=== PATIENT | female | born 1965 | race Caucasian/White ===

== ENCOUNTER 2019-12-06 17:30 | Emergency (ER) | payer MEDICARE, MEDICAID, SELFPAY ==
[2019-12-06 17:40] VITALS: BP 168/91; PULSE 67; RESP 16; TEMP 36.4; O2SAT 99; BMI 34.7
[2019-12-06 18:01] LABS: Blood Urine Neg (Negative); Glucose Urine UA Norm (Normal); Ketones Urine Negative (Negative); Nitrate Urine Negative (Negative); Protein Urine Neg (Negative); Urine Appearance Clear (CLEAR); Urine Color Yellow (Yellow); pH Urine 7 (5-7)
[2019-12-06 18:02] LABS: Bilirubin Urine Neg (NEGATIVE); Leukocyte Esterase Urine Negative (Negative); Urobilinogen Urine Norm (Negative)
[2019-12-06 18:15] VITALS: BP 135/82; PULSE 69; RESP 12; TEMP 36.7; O2SAT 98
--- NOTE | 2019-12-06 18:36 | W.ED.FEMALGU ---
HPI - Female Genitourinary General: Chief complaint: Urogenital-Female Stated complaint: Hurts to urinate Time Seen by Provider: 12/06/19 18:14 Source: patient Mode of arrival: ambulatory Limitations: no limitations History of Present Illness: HPI Narrative: Patient is a 54-year-old female who presents to ED today with complaints of dysuria; patient states she has had this for the past week or so; she is also complaining of some intermittent lower abdominal/pelvic pain that has been present intermittently for approximately 2 months now; she was seen by her PCP Dr. Ross who ordered a transvaginal ultrasound as patient was also having some abnormal uterine bleeding; patient states she also had a pelvic exam performed and STD testing and states those came back negative; she tells me she has not been sexually active in over a year; she states abdominal/pelvic pain seems to come on every few days and will normally subside on its own; she does not complain of any changes in her urinary or bowel habits; no vomiting, no fever/chills; she denies vaginal discharge/odor. MD elicited complaint: dysuria and vaginal bleeding Consistency: intermittent Vaginal discharge: none Urinary symptoms: Dysuria Exacerbating factors: none Associated symptoms: Reports abdominal pain; Deny headache(s), nausea or syncope Date of Last Menstrual Period: 12/02/18 Review of Systems Const: Denies: fever, chills, body aches, fatigue or malaise Eyes: Denies: change in vision or blurry vision ENMT: Denies: throat pain, enlarged tonsils or painful swallowing Card: Denies: chest pain, palpitations, irregular heart rhythm, lightheadedness, syncope or shortness of breath on exertion Resp: Denies: shortness of breath, productive cough or pain on inspiration GI: Reports: abdominal pain; Denies: nausea, vomiting, heartburn/indigestion, diarrhea, fecal incontinence, painful bowel movements, rectal pain, change in stool character or white/light colored stool : Reports: painful urination; Denies: flank pain, difficulty urinating, urinary frequency, urinary urgency or urinary hesitancy Musc: Denies: neck pain, back pain or joint pain Skin/Breast: Denies: rash Neuro: Denies: headache PFSH ED PFSH: Statuses (acute, chronic, etc) shown below reflect problem list status as previously entered and may not be historically accurate Social History Smoking and tobacco status: never smoked Female Reproductive History: Date of last menstrual period: 12/02/18 Physical Exam Const: COMMON NORMALS: no apparent distress, oriented x3 and alert NUTRITIONAL APPEARANCE: obese HENMT: COMMON NORMALS: normocephalic and head/scalp atraumatic HEAD & SCALP: normocephalic and atraumatic Neck/C-Spine: COMMON NORMALS: full ROM, no lymphadenopathy, supple and no meningeal signs Chest: COMMONS NORMALS: inspection of chest normal Resp: COMMON NORMALS: normal respiratory effort and clear to auscultation bilaterally AUSCULTATION: clear to auscultation bilaterally Cardio: COMMON NORMALS: regular rate and regular rhythm RATE: regular rate RHYTHM: regular rhythm GI: COMMON NORMALS: normal to inspection, nondistended, normoactive bowel sounds, soft to palpation, non-tender, no hepatosplenomegaly and no masses PALPATION: Yes soft and Yes no hepatosplenomegaly : COMMON NORMALS: Yes no CVA tenderness BLADDER/KIDNEY EXAM: Yes no CVA tenderness Back/Pelvis: COMMON NORMALS: no CVA tenderness and thoracic and lumbar spine normal to inspection Extremity: COMMON NORMALS: normal to inspection Neuro: COMMON NORMALS: oriented x3 SENSORIUM/ORIENTATION: Yes alert MENINGEAL SIGNS: Yes no meningeal signs Skin: COMMON NORMALS: no rashes or lesions noted GENERAL SKIN EXAM: no rashes or lesions noted Course ED course: US report from last month reviewed and is as follows: Vital Signs: Vital signs: Vital Signs Temperature 98.1 F 12/06/19 18:15 Pulse Rate 64 12/06/19 20:03 Respiratory Rate 18 12/06/19 20:03 Blood Pressure 113/85 12/06/19 20:03 Pulse Oximetry 98 12/06/19 20:03 MDM - Female MDM Narrative: Medical decision making narrative: Patient clinically appears well. Her vitals are stable. Her labs are non-concerning at this time. UA is not indicative of a UTI. Ultrasound from 10/18/2019 was reviewed which showed unremarkable postmenopausal pelvis . She is not having any vaginal discharge or abnormal bleeding at this time. Abdominal/pelvic pain has been intermittent and present for approximately 2 months now. I do not feel she needs emergent imaging at this time. She does have an appointment set up with Dr. Pettit next month. Recommend she follow-up with Dr. Ross in the meantime. Lab Data: Labs: Lab Results 12/06/19 12/06/19 12/06/19 Range/Units 17:40 19:13 19:13 WBC 7.6 (4.0-10.0) 10^3/ uL RBC 4.44 (4.1-5.3) 10^6/u L Hgb 13.4 (11.5-15.3) g/dL Hct 42.1 (37.0-47.0) % MCV 94.8 (81-99) fL MCH 30.2 (28.0-34.0) pg MCHC 31.8 (30.0-36.0) g/dL RDW 11.9 L (12.1-15.1) % Plt Count 231 (130-400) 10^3/c mm MPV 11.3 H (7.4-10.4) fL Neut % (Auto) 63.0 % Lymph % (Auto) 23.3 % [place] % (Auto) 8.6 % Eos % (Auto) 4.0 % Baso % (Auto) 0.8 % Neut # (Auto) 4.8 (1.8-7.7) 10^3/u L Lymph # (Auto) 1.8 (0.8-4.8) 10^3/u L [place] # (Auto) 0.7 (0.2-0.9) 10^3/u L Eos # (Auto) 0.3 (0.0-0.8) 10^3/u L Baso # (Auto) 0.1 (0.0-0.1) 10^3/u L Nucleated RBC % (a uto) 0 % Nucleated RBCs # 0.0 /100WBC Sodium 138 (136-145) mmol/L Potassium 4.0 (3.5-5.1) mmol/L Chloride 103 (98-107) mmol/L Carbon Dioxide 25 (22-29) mmol/L Anion Gap 14.0 (5-19) BUN 10 (6-20) mg/dL Creatinine 0.8 (0.5-0.9) mg/dL GFR Calculation 75.0 L (90-130) mL/min Glucose 87 (65-115) mg/dL Calcium 9.3 (8.5-10.5) mg/dL Total Bilirubin 0.5 (0.15-1.2) mg/dL AST 18 (0-32) U/L ALT 13 (0-33) U/L Alkaline Phosphata se 77 (35-105) IU/L Total Protein 7.1 (6.6-8.7) g/dL Albumin 4.1 (3.5-5.2) g/dL Globulin 3.0 (1.3-4.6) g/dL Lipase 18 (13-60) U/L HCG, Qual (Negative) Urine Color Yellow (Yellow) Urine Appearance Clear (CLEAR) Urine pH 7 (5-7) Ur Specific Gravit y 1.010 (1.005-1.030) Urine Protein Neg (Negative) Urine Glucose (UA) Norm (Normal) Urine Ketones Negative (Negative) Urine Occult Blood Neg (Negative) Urine Nitrate Negative (Negative) Urine Bilirubin Neg (NEGATIVE) Urine Urobilinogen Norm (Negative) mg/dL Ur Leukocyte Ashlee ase Negative (Negative) Urine 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 12/06/19 Range/Units 19:13 WBC (4.0-10.0) 10^3/ uL RBC (4.1-5.3) 10^6/u L Hgb (11.5-15.3) g/dL Hct (37.0-47.0) % MCV (81-99) fL MCH (28.0-34.0) pg MCHC (30.0-36.0) g/dL RDW (12.1-15.1) % Plt Count (130-400) 10^3/c mm MPV (7.4-10.4) fL Neut % (Auto) % Lymph % (Auto) % [place] % (Auto) % Eos % (Auto) % Baso % (Auto) % Neut # (Auto) (1.8-7.7) 10^3/u L Lymph # (Auto) (0.8-4.8) 10^3/u L [place] # (Auto) (0.2-0.9) 10^3/u L Eos # (Auto) (0.0-0.8) 10^3/u L Baso # (Auto) (0.0-0.1) 10^3/u L Nucleated RBC % (a uto) % Nucleated RBCs # /100WBC Sodium (136-145) mmol/L Potassium (3.5-5.1) mmol/L Chloride (98-107) mmol/L Carbon Dioxide (22-29) mmol/L Anion Gap (5-19) BUN (6-20) mg/dL Creatinine (0.5-0.9) mg/dL GFR Calculation (90-130) mL/min Glucose (65-115) mg/dL Calcium (8.5-10.5) mg/dL Total Bilirubin (0.15-1.2) mg/dL AST (0-32) U/L ALT (0-33) U/L Alkaline Phosphata se (35-105) IU/L Total Protein (6.6-8.7) g/dL Albumin (3.5-5.2) g/dL Globulin (1.3-4.6) g/dL Lipase (13-60) U/L HCG, Qual Negative (Negative) Urine Color (Yellow) Urine Appearance (CLEAR) Urine pH (5-7) Ur Specific Gravit y (1.005-1.030) Urine Protein (Negative) Urine Glucose (UA) (Normal) Urine Ketones (Negative) Urine Occult Blood (Negative) Urine Nitrate (Negative) Urine Bilirubin (NEGATIVE) Urine Urobilinogen (Negative) mg/dL Ur Leukocyte Ashlee ase (Negative) Urine RBC Discharge Plan Discharge Patient Disposition: Home, Self-Care Clinical Impression: Intermittent abdominal pain Condition: Stable Discharge Orders: Discharge Order (Routine); Ordered 12/06/19 Ordered By: Carolyn Motat Referrals: Ebony Ross DO [Primary Care Provider] - Patient Instructions: Abdominal Pain (ED) Activity Restrictions/Additional Instructions: Follow up with your primary care provider as soon as possible and keep your appointment with Dr. Pettit for next month. Discharge Date/Time: 12/06/19 20:01 Coding Level of Care Code ED Cad Administrator for Darren Hou
[2019-12-06 19:23] LABS: Basophils # 0.1 10^3/uL (0.0-0.1); Basophils % 0.8 %; Eosinophils # 0.3 10^3/uL (0.0-0.8); Hematocrit 42.1 % (37.0-47.0); Hemoglobin 13.4 g/dL (11.5-15.3); Lymphocytes # 1.8 10^3/uL (0.8-4.8); Lymphocytes % 23.3 %; Mean Corpuscular HGB Conc 31.8 g/dL (30.0-36.0); Mean Corpuscular Hemoglobin 30.2 pg (28.0-34.0); Mean Corpuscular Volume 94.8 fL (81-99); Mean Platelet Volume 11.3 fL (7.4-10.4); Monocytes # 0.7 10^3/uL (0.2-0.9); Monocytes % 8.6 %; Neutrophils # 4.8 10^3/uL (1.8-7.7); Nucleated Red Blood Cells % 0 %; Platelet Count 231 10^3/cmm (130-400); Red Blood Count 4.44 10^6/uL (4.1-5.3); Red Cell Distribution Width 11.9 % (12.1-15.1); White Blood Count 7.6 10^3/uL (4.0-10.0)
[2019-12-06 19:44] LABS: HCG, Serum Qual Negative (Negative)
[2019-12-06 19:47] LABS: Alanine Aminotransferase 13 U/L (0-33); Albumin Level 4.1 g/dL (3.5-5.2); Alkaline Phosphatase 77 IU/L (35-105); Aspartate Amino Transferase 18 U/L (0-32); Blood Urea Nitrogen 10 mg/dL (6-20); Calcium 9.3 mg/dL (8.5-10.5); Carbon Dioxide 25 mmol/L (22-29); Chloride 103 mmol/L (98-107); Glucose 87 mg/dL (65-115); Lipase 18 U/L (13-60); Sodium 138 mmol/L (136-145); Total Bilirubin 0.5 mg/dL (0.15-1.2); Total Protein 7.1 g/dL (6.6-8.7)
[2019-12-06 20:03] VITALS: BP 113/85; PULSE 64; RESP 18; O2SAT 98
--- NOTE | 2019-12-10 09:27 | DCPLANNER ---
clinical team manager had message to schedule a follow up appointment for patient with [facility]. clinical team manager called the clinic, spoke with Juan Francisco, gave patients information to clinic. clinical team manager was told that patients information would be printed, given to Юлия for review. Clinic will call assistant case manager and patient with appointment information.
--- NOTE | 2019-12-11 10:10 | DCPLANNER ---
Юлия from [facility] called oil field caser and stated that a follow up appointment is scheduled for December at 2:[address] Pettit. Patient is aware of appointment.
--- NOTE | 2020-01-09 15:16 | DCPLANNER ---
Patient attended appointment scheduled for 01.03.20 with [facility].
== END 2019-12-06 20:01 | disposition home or self-care (01) ==
PROVIDERS: Emergency Provider Physician Assistant; Family Provider Family Medicine; PCP Family Medicine
DX: R10.30 Lower abdominal pain, unspecified (principal)
CPT/HCPCS: 80053; 81001; 83690; 84703; 85025; 99282

== ENCOUNTER 2019-12-07 20:41 | Emergency (ER) | payer MEDICARE, MEDICAID, SELFPAY ==
[2019-12-07 20:44] VITALS: BP 125/94; PULSE 78; RESP 18; TEMP 36.9; O2SAT 98; BMI 35.2
--- NOTE | 2019-12-07 20:57 | ED_ITS ---
Entered by Fannie Mack, acting as scribe for Cady Urrutia DO Dec 07, 2019 20:41 HPI - Female Genitourinary General: Chief complaint: Urogenital-Female Stated complaint: pain with urination Time Seen by Provider: 12/07/19 20:56 Source: patient Mode of arrival: ambulatory Limitations: no limitations History of Present Illness: HPI Narrative: 54 yo Female presents to ED with complaint of abdominal pain and pain with urination. MD elicited complaint: difficulty urinating Location of symptoms: LLQ and urethra Severity scale (1-10): 10 Consistency: progressively worsening Vaginal discharge: none Vaginal bleeding: none Urinary symptoms: Difficulty Urinating and Flank Pain Exacerbating factors: urination Relieving factors: none Associated symptoms: Reports abdominal pain; Deny headache(s) or nausea Treatment prior to arrival: none Date of Last Menstrual Period: 12/02/18 Review of Systems Const: Denies: fever, chills, change in appetite or malaise Eyes: Denies: change in vision, blurry vision, eye discharge or eye redness ENMT: Denies: throat pain, uvular edema, painful swallowing, mouth pain, dental pain, nasal congestion or facial/sinus pain Card: Denies: chest pain, irregular heart rhythm, swelling of feet/ankles, shortness of breath on exertion, shortness of breath when lying down or leg pain with exertion Resp: Denies: shortness of breath, productive cough, wheezing or coughing up blood GI: Reports: abdominal pain; Denies: nausea, vomiting, diarrhea, constipation or fecal incontinence : Reports: painful urination; Denies: flank pain, difficulty urinating, urinary frequency, urinary urgency or urinary hesitancy Musc: Denies: neck pain, back pain, extremity pain or extremity swelling Skin/Breast: Denies: rash, itching, redness, yellow skin or dry skin Neuro: Denies: headache, numbness in extremities, weakness in extremities, changes in sensation, lack of coordination or difficulty walking Psych: Denies: anxiety, depression, mood swings, panic attacks, sleeping less, suicidal ideation or homicidal ideation Endo: Denies: excessive urination, excessive thirst or tired all the time Adan/Lymph: Denies: easy bruising, petechiae or enlarged lymph nodes All/Imm: Denies: hives, throat swelling, facial swelling, acute wheezing or seasonal allergies PFSH ED PFSH: Statuses (acute, chronic, etc) shown below reflect problem list status as previously entered and may not be historically accurate Social History Smoking and tobacco status: never smoked Female Reproductive History: Date of last menstrual period: 12/02/18 Physical Exam Const: COMMON NORMALS: no apparent distress, oriented x3, no limitations, healthy appearing, alert and well nourished GENERAL APPEARANCE: cooperative, comfortable, well kempt and well developed ORIENTATION/CONSCIOUSNESS: Yes awake, Yes oriented to person, Yes oriented to place and Yes oriented to time HENMT: COMMON NORMALS: normocephalic, head/scalp atraumatic, hearing grossly normal bilaterally, external ears normal, EAC's normal, TM's normal bilaterally, external nose normal, nasal mucous membranes and turbinates normal, moist oral mucous membranes, oropharynx normal, dentition normal and gingiva normal HEAD & SCALP: normal to inspection, normocephalic and atraumatic FACE & SINUS: normal facial exam NOSE: external nose normal and nasal mucous membranes and turbinates normal EXTERNAL EAR: Yes external ears normal EXTERNAL AUDITORY CANAL: EAC's normal TYMPANIC MEMBRANE: TM's normal bilaterally MOUTH: oral and palatal mucosa normal, lip normal and tongue normal THROAT: no uvular edema Eye: COMMON NORMALS: PERRL, EOMs intact bilaterally, conjunctivae normal, no scleral icterus and normal visual valero by confrontation GENERAL EYE: normal appearance of both eyes and normal light reflex VISUAL ACUITY: Yes acuity normal ALIGNMENT: Yes alignment normal PERIORBITAL: periorbital findings normal EYELID: eyelids normal CONJUNCTIVA: Yes conjunctivae normal SCLERA: sclerae normal PUPIL: Yes PERRL and Yes accommodation reflex normal DIRECT OPHTHALMOSCOPY: Yes normal light reflex Neck/C-Spine: COMMON NORMALS: full ROM, no lymphadenopathy, supple, no meningeal signs and no JVD GENERAL: Yes normal visual inspection CAROTIDS: Yes normal carotid upstroke CERVICAL SPINE: Yes cervical ROM normal Lymph: LYMPHATIC: no lymphadenopathy noted Chest: COMMONS NORMALS: inspection of chest normal CHEST: Yes symmetrical chest wall rise Resp: COMMON NORMALS: normal respiratory effort, no retractions, no use of accessory muscles and clear to auscultation bilaterally EFFORT & INSPECTION: Yes able to speak in complete sentences and Yes symmetric chest movement AUSCULTATION: clear to auscultation bilaterally Cardio: COMMON NORMALS: no JVD, regular rate, regular rhythm, S1 normal heart sound, S2 normal heart sound, no murmurs and peripheral pulses 2+ throughout RATE: regular rate RHYTHM: regular rhythm HEART SOUNDS: S1 normal and S2 normal PERIPHERAL PULSES: pulses 2+ throughout GI: COMMON NORMALS: normal to inspection, nondistended, normoactive bowel sounds and non-tender : COMMON NORMALS: Yes no CVA tenderness BLADDER/KIDNEY EXAM: Yes no CVA tenderness Back/Pelvis: COMMON NORMALS: no CVA tenderness, thoracic and lumbar spine normal to inspection, no thoracic nor lumbar tenderness and thoraco-lumbar ROM normal Extremity: COMMON NORMALS: normal to inspection, full ROM, normal capillary refill, no calf tenderness and no pedal edema Neuro: COMMON NORMALS: oriented x3, CN's II-XII intact bilaterally, moves all extremities, no focal motor deficits, no sensory deficits noted and gait normal SENSORIUM/ORIENTATION: Yes alert, Yes oriented to person, Yes oriented to place and Yes oriented to time MENINGEAL SIGNS: Yes no meningeal signs SPEECH: speech normal GAIT: Yes normal gait MOTOR EXAM: strength 5/5 throughout, no pronator drift and no tremor noted Psych: COMMON NORMALS: mental status grossly normal, thought process normal, cooperative, affect normal, speech normal and activity/motor behavior normal APPEARANCE: Yes well kempt SPEECH: Yes normal speech THOUGHT PROCESS: normal thought process THOUGHT CONTENT: Yes normal thought content INSIGHT: insight good Skin: COMMON NORMALS: no rashes or lesions noted, no wounds, skin turgor normal and no jaundice GENERAL SKIN EXAM: no rashes or lesions noted and turgor normal Course ED course: discussed results, will treat as cystitis with 3 days of cipro and pyridium, drink more water follow up with PCP Vital Signs: Vital signs: Vital Signs Temperature 98.4 F 12/07/19 20:44 Pulse Rate 78 12/07/19 20:44 Respiratory Rate 18 12/07/19 20:44 Blood Pressure 125/94 12/07/19 20:44 Pulse Oximetry 98 12/07/19 20:44 MDM - Female Lab Data: Labs: Lab Results 12/07/19 Range/Units 21:35 Urine Color Yellow (Yellow) Urine Appearance Clear (CLEAR) Urine pH 5 (5-7) Ur Specific Gravit y 1.025 (1.005-1.030) Urine Protein Neg (Negative) Urine Glucose (UA) Norm (Normal) Urine Ketones Negative (Negative) Urine Occult Blood 2+ H (Negative) Urine Nitrate Negative (Negative) Urine Bilirubin Neg (NEGATIVE) Urine Urobilinogen Norm (Negative) mg/dL Ur Leukocyte Ashlee ase 1+ H (Negative) Discharge Plan Discharge Patient Disposition: Home, Self-Care Clinical Impression: Cystitis Condition: Stable Prescriptions: New ciprofloxacin HCl [Cipro] 500 mg tablet 500 mg PO DAILY 3 Days Qty: 3 RF: 0 phenazopyridine [Pyridium] 100 mg tablet 100 mg PO TID 3 Days Qty: 9 RF: 0 Discharge Orders: Discharge Order (Routine); Ordered 12/07/19 Ordered By: Cady Urrutia Referrals: Ebony Ross DO [Primary Care Provider] - Discharge Diet: Usual diet Discharge Activity: Resume usual activity Patient Instructions: Urinary Tract Infection in Women (ED), Chronic Pelvic Pain in Women (ED) Activity Restrictions/Additional Instructions: Drink plenty of water. Motrin and or Tylenol as needed for pain. Coding Level of Care Code ED Quarry Manager for Chg Fwd Exam Problem Focused The documentation recorded by the Martina lomeli Carmen, accurately reflects the service I personally performed and the decisions made by Renan chatman Amanda, DO Dec 07, 2019 20:41
[2019-12-07 21:54] LABS: Urine Appearance Clear (CLEAR); Urine Color Yellow (Yellow)
[2019-12-07 21:55] LABS: Add Urine Microscopic? YES; Bilirubin Urine Neg (NEGATIVE); Blood Urine 2+ (Negative); Glucose Urine UA Norm (Normal); Ketones Urine Negative (Negative); Leukocyte Esterase Urine 1+ (Negative); Nitrate Urine Negative (Negative); Protein Urine Neg (Negative); Specific Gravity, Urine 1.025 (1.005-1.030); Urobilinogen Urine Norm (Negative); pH Urine 5 (5-7)
[2019-12-07 22:02] LABS: Add Urine Culture? Yes; Bacteria Urine 1+; Mucus Urine TRACE; RBC Urine 0-4 /hpf (0-2); Squamous Epithelial Cell Urine RARE (0-5); WBC Urine 25-40 /hpf (0-5)
[2019-12-07 22:19] VITALS: BP 111/65; PULSE 82; RESP 18; O2SAT 97
== END 2019-12-07 22:20 | disposition home or self-care (01) ==
PROVIDERS: Emergency Provider Emergency Medicine; Family Provider Family Medicine; PCP Family Medicine
DX: N30.90 Cystitis, unspecified without hematuria (principal)
CPT/HCPCS: 81001; 87077; 87086; 87186; 99282; 99283

== ENCOUNTER → 2020-01-03 15:15 | Outpatient (BNVA) | payer MEDICARE, MEDICAID, SELFPAY | PROVIDERS: Family Provider Family Medicine; PCP Family Medicine; Visit Provider Obstetrics & Gynecology | DX: N93.8 Other specified abnormal uterine and vaginal bleeding (principal) | CPT/HCPCS: 82670; 83001 ==

== ENCOUNTER → 2020-01-09 10:42 | Outpatient (BNVA) | payer MEDICARE, MEDICAID, SELFPAY | PROVIDERS: Family Provider Family Medicine; PCP Family Medicine; Visit Provider Psychiatry & Neurology Psychiatry | DX: F32.1 Major depressive disorder, single episode, moderate (principal); F81.9 Developmental disorder of scholastic skills, unspecified; Z63.9 Problem related to primary support group, unspecified | CPT/HCPCS: 99213 ==

== ENCOUNTER 2020-01-16 18:05 | Emergency (ER) | payer MEDICARE, MEDICAID, SELFPAY ==
[2020-01-16 18:38] VITALS: BP 143/79; PULSE 89; RESP 16; TEMP 37.3; O2SAT 100; BMI 35.5
[2020-01-16 19:02] LABS: Basophils % 0.1 %; Hematocrit 42.2 % (37.0-47.0); Hemoglobin 13.8 g/dL (11.5-15.3); Lymphocytes # 2.3 10^3/uL (0.8-4.8); Lymphocytes % 11.7 %; Mean Corpuscular HGB Conc 32.7 g/dL (30.0-36.0); Mean Corpuscular Hemoglobin 29.9 pg (28.0-34.0); Mean Corpuscular Volume 91.3 fL (81-99); Mean Platelet Volume 9.1 fL (7.4-10.4); Monocytes # 1.3 10^3/uL (0.2-0.9); Monocytes % 6.2 %; Neutrophils # 16.2 10^3/uL (1.8-7.7); Nucleated Red Blood Cells % 0 %; Platelet Count 453 10^3/cmm (130-400); Red Blood Count 4.62 10^6/uL (4.1-5.3)
[2020-01-16 19:23] LABS: Blood Urea Nitrogen 14 mg/dL (6-20); Calcium 9.9 mg/dL (8.5-10.5); Carbon Dioxide 24 mmol/L (22-29); Chloride 103 mmol/L (98-107); Glucose 136 mg/dL (65-115); Osmolality Calculated 288 mOsm/kg (285-295); Sodium 140 mmol/L (136-145)
--- NOTE | 2020-01-16 20:59 | PC.NURSE ---
Agree with patient assessment
== END 2020-01-16 20:59 | disposition left against medical advice (07) ==
PROVIDERS: Emergency Provider Emergency Medicine; Family Provider Family Medicine; PCP Family Medicine
DX: M79.671 Pain in right foot (principal); Z53.21 Procedure and treatment not carried out due to patient leaving prior to being seen by health care provider
CPT/HCPCS: 36415; 80048; 85025; 99281; 99283

== ENCOUNTER → 2020-01-17 12:02 | Outpatient (BNVA) | payer MEDICARE, MEDICAID, SELFPAY | PROVIDERS: Family Provider Family Medicine; PCP Family Medicine; Visit Provider Family Medicine | DX: E78.5 Hyperlipidemia, unspecified (principal); E11.9 Type 2 diabetes mellitus without complications | CPT/HCPCS: 36415; 80053; 80061; 83036 ==

== ENCOUNTER → 2020-01-24 10:35 | Outpatient (BNVA) | payer MEDICARE, MEDICAID, SELFPAY | PROVIDERS: Family Provider Family Medicine; PCP Family Medicine; Visit Provider Obstetrics & Gynecology | DX: N95.0 Postmenopausal bleeding (principal) | CPT/HCPCS: 88305 ==

== ENCOUNTER → 2020-02-20 07:50 | Outpatient (BNVA) | payer MEDICARE, MEDICAID, SELFPAY | PROVIDERS: Family Provider Family Medicine; PCP Family Medicine; Visit Provider Psychiatry & Neurology Psychiatry | DX: F32.1 Major depressive disorder, single episode, moderate (principal); F60.9 Personality disorder, unspecified | CPT/HCPCS: 99213 ==

== ENCOUNTER 2022-03-20 16:30 | Emergency (ER) | payer MEDICAID, SELFPAY ==
[2022-03-20 16:42] VITALS: BP 158/92; PULSE 75; RESP 16; TEMP 37.1; O2SAT 94
--- NOTE | 2022-03-20 16:54 | CTR_ITS ---
PROCEDURE INFORMATION: Exam: CT Abdomen And Pelvis Without Contrast Exam date and time: 03/20/2022 5:20 PM Age: 56 years old Clinical indication: Abdominal pain; Localized; Left lower quadrant (llq); Prior surgery; Surgery type: Gb; Additional info: Abd pain TECHNIQUE: Imaging protocol: Computed tomography of the abdomen and pelvis without contrast. Radiation optimization: All CT scans at this facility use at least one of these dose optimization techniques: automated exposure control; mA and/or kV adjustment per patient size (includes targeted exams where dose is matched to clinical indication); or iterative reconstruction. COMPARISON: CT abdomen pelvis w con* [id number] 02/07/2018 9:56 AM RADIATION DOSE METRICS: Total DLP (mGy-cm): 1640.65 FINDINGS: Lungs: There is a benign calcified granuloma in the left lower lobe. Liver: There is diffuse low-attenuation of the liver relative to the spleen consistent with fatty infiltration. There is no focal liver abnormality. Gallbladder and bile ducts: The gallbladder is absent. There is no intrahepatic or extrahepatic bile duct dilation. Pancreas: The pancreas is unremarkable. Spleen: The spleen is unremarkable. Adrenal glands: The adrenal glands are unremarkable. Kidneys and ureters: The kidneys are unremarkable. No hydronephrosis or stones. No ureteral dilation. Stomach and bowel: The stomach is unremarkable. The small bowel is nondilated. There is mild sigmoid colonic diverticulosis without evidence of diverticulitis. Appendix: The midportion of the appendix is at the upper limit of normal in size measuring 8 mm diameter. There is no periappendiceal edema or other evidence of inflammation. No appendicolith. Findings are similar to those seen on 02/07/2018. Appendicitis is not suspected. Intraperitoneal space: There is no free air or significant intraperitoneal free fluid. Vasculature: There is mild aortic atherosclerotic disease. Lymph nodes: There is no lymphadenopathy in the retroperitoneum, mesentery, pelvis or inguinal regions. Urinary bladder: The urinary bladder is decompressed, preventing meaningful evaluation of wall thickness. Reproductive: The uterus is unremarkable. There is no adnexal mass or large cyst. Bones/joints: There is mild degenerative disease in the lumbar spine. The pelvis and hips are unremarkable. Soft tissues: Multifocal fat containing periumbilical ventral hernia. CT/CT kidney stone [id number] IMPRESSION: 1. No acute findings. 2. Incidental findings above.
--- NOTE | 2022-03-20 17:04 | ED_ITS ---
HPI - Abdominal Pain General: Chief Complaint: Abdominal Pain Stated Complaint: Pains in left side, has a hernia she said Time Seen by Provider: 03/20/22 16:39 Source: patient Mode of arrival: ambulatory Limitations: no limitations History of Present Illness: 56-year-old female states that she has been having some left lower quadrant abdominal pain for months and is concerned that she may had a hernia. States that her pain worsened today and rates it a 5 out of 10. She states that sharp in nature seems to be worse with straining when she coughed or went to the bowel movement improved with rest denies any fever denies any diarrhea denies any vomiting. Associated Symptoms: Denies chills, dysuria and fever(s) Related Data: Date of Last Menstrual Period: 12/02/18 Review of Systems Const: Denies: fever(s), chills, body aches or change in appetite Eyes: Denies: blurry vision or eye discomfort ENMT: Denies: throat pain or dental pain Card: Denies: chest pain Resp: Denies: dyspnea GI: Reports: abdominal pain : Denies: dysuria Musc: Denies: neck pain or back pain Skin/Breast: Denies: rash Neuro: Denies: headache(s) Psych: Denies: depression Adan/Lymph: Denies: easy bruising All/Imm: Denies: urticaria PFSH ED PFSH: Medical History Diverticulosis large intestine w/o perforation or abscess w/o bleeding Had diverticulitis in 2018 Drug reaction To zocor Enrolled in chronic care management Hyperlipidemia Hypothyroidism Type 2 diabetes mellitus Previously treated with metformin - now resolved. Most recent A1C in 01/17 was 5.5 Surgical History History of section, low transverse 2002- Performed by Dr Pettit at [facility] in [place], [place]. 2004-Performed by Dr Pettit at [facility] in [place], [place]. 2008-Performed by Dr Pettit at [facility] in [place], [place] History of cholecystectomy (04/2004) Performed at [facility] in [place], [place] History of hemorrhoidectomy (~1997) Performed at [facility] in [place], [place] Family History Mother Stroke Heart disease Hypercholesteremia Colon cancer Hypertension Sister Ovarian cancer Family/Other Breast cancer maternal aunt Social History Smoking and tobacco status: never smoked Second hand smoke exposure: Yes (Sometimes) Alcohol intake: never History of recent travel: No Female Reproductive History: Date of last menstrual period: 12/02/18 Physical Exam Const: COMMON NORMALS: no acute distress, patient oriented x3 and healthy appe aring HENMT: COMMON NORMALS: normocephalic and atraumatic HEAD & SCALP: normocephalic and atraumatic Eye: COMMON NORMALS: Equal, round and reactive pupils present and EOMs intact bilaterally PUPIL: Yes Equal, round and reactive pupils present Neck/C-Spine: COMMON NORMALS: full ROM and supple Chest: COMMONS NORMALS: normal inspection of the chest and normal palpation of entire chest wall Resp: COMMON NORMALS: normal respiratory effort, No retractions, No use of accessory muscles and clear to auscultation bilaterally AUSCULTATION: clear to auscultation bilaterally Cardio: COMMON NORMALS: regular rate, regular rhythm and No murmurs present (Cardio) RATE: regular rate RHYTHM: regular rhythm GI: COMMON NORMALS: Normal to inspection, nondistended, normoactive bowel sounds present, Soft to palpation and no masses PALPATION: Yes Soft to palpation OTHER: Slight diffuse tenderness Extremity: COMMON NORMALS: normal to inspection and full ROM Neuro: COMMON NORMALS: patient oriented x3, moves all extremities and no focal motor deficits Psych: COMMON NORMALS: mental status grossly normal, Normal thought process present and cooperative THOUGHT PROCESS: Normal thought process present Skin: COMMON NORMALS: no rashes or lesions noted and no wounds GENERAL SKIN EXAM: no rashes or lesions noted Course Vital Signs: Vital signs: Vital Signs Temperature 98.8 F 03/20/22 16:42 Pulse Rate 75 03/20/22 16:42 Respiratory Rate 18 03/20/22 17:41 Blood Pressure 158/92 03/20/22 16:42 Pulse Oximetry 94 03/20/22 16:42 MDM - Abdominal Pain Medical Decision Making Patient presents here with abdominal pain likely from her hernia she does not have any bowel or hernia her abdominal exam is benign she is stable for discharge and to follow-up with surgeon and return if worsening. Lab Data : 03/20/22 17:53 03/20/22 17:53 Labs/Radiology: Radiology Impressions Abdomen/Pelvis CT 03/20/22 16:54 IMPRESSION: 1. No acute findings. 2. Incidental findings above. Laboratory Results WBC Cancelled 03/20/22 17:53 Corrected WBC Cancelled 03/20/22 17:53 RBC Cancelled 03/20/22 17:53 Hgb Cancelled 03/20/22 17:53 Hct Cancelled 03/20/22 17:53 MCV Cancelled 03/20/22 17:53 MCH Cancelled 03/20/22 17:53 MCHC Cancelled 03/20/22 17:53 RDW Cancelled 03/20/22 17:53 Plt Count Cancelled 03/20/22 17:53 MPV Cancelled 03/20/22 17:53 Gran % Cancelled 03/20/22 17:53 Neut % (Auto) Cancelled 03/20/22 17:53 Lymph % (Auto) Cancelled 03/20/22 17:53 [place] % (Auto) Cancelled 03/20/22 17:53 Eos % (Auto) Cancelled 03/20/22 17:53 Baso % (Auto) Cancelled 03/20/22 17:53 Neut # (Auto) Cancelled 03/20/22 17:53 Lymph # (Auto) Cancelled 03/20/22 17:53 [place] # (Auto) Cancelled 03/20/22 17:53 Eos # (Auto) Cancelled 03/20/22 17:53 Baso # (Auto) Cancelled 03/20/22 17:53 Absolute Gran (auto) Cancelled 03/20/22 17:53 Nucleated RBC % (auto) Cancelled 03/20/22 17:53 Nucleated RBCs # Cancelled 03/20/22 17:53 Sodium 141 mmol/L (136-145) 03/20/22 17:53 Chloride 104 mmol/L (98-107) 03/20/22 17:53 Carbon Dioxide 26 mmol/L (22-29) 03/20/22 17:53 BUN 11 mg/dL (6-20) 03/20/22 17:53 Creatinine 0.9 mg/dL (0.5-0.9) 03/20/22 17:53 Glucose 101 mg/dL (65-115) 03/20/22 17:53 Calculated Osmolality 292 mOsm/kg (285-295) 03/20/22 17:53 Calcium 8.6 mg/dL (8.5-10.5) 03/20/22 17:53 Total Bilirubin 0.5 mg/dL (0.15-1.2) 03/20/22 17:53 Alkaline Phosphatase 73 IU/L (35-105) 03/20/22 17:53 Total Protein 7.2 g/dL (6.6-8.7) 03/20/22 17:53 Albumin 4.3 g/dL (3.5-5.2) 03/20/22 17:53 Globulin 2.9 g/dL (1.3-4.6) 03/20/22 17:53 Lipase 23 U/L (13-60) 03/20/22 17:53 Urine Color Yellow (Yellow) 03/20/22 16:49 Urine Appearance Clear (CLEAR) 03/20/22 16:49 Urine pH 5 (5-7) 03/20/22 16:49 Ur Specific [place] 1.030 (1.005-1.030) 03/20/22 16:49 Urine Protein Neg (Negative) 03/20/22 16:49 Urine Glucose (UA) Norm (Normal) 03/20/22 16:49 Urine Ketones Negative (Negative) 03/20/22 16:49 Urine Blood Trace (Negative) H 03/20/22 16:49 Urine Nitrate Negative (Negative) 03/20/22 16:49 Urine Bilirubin Neg (Negative) 03/20/22 16:49 Urine Urobilinogen Norm mg/dL (Negative) 03/20/22 16:49 Ur Leukocyte Esterase Negative (Negative) 03/20/22 16:49 Urine RBC Rare /hpf (0-2) 03/20/22 16:49 Urine WBC 5-10 /hpf (0-5) H 03/20/22 16:49 Ur Squamous Epith Cells 10-15 /hpf (0-5) H 03/20/22 16:49 Amorphous Sediment Not Reportable 03/20/22 16:49 Urine Bacteria 2+ /hpf (NONE) H 03/20/22 16:49 Discharge Plan Discharge Patient Disposition: Home Clinical Impression: Abdominal pain Qualifiers: Abdominal location: generalized Qualified Code(s): R10.84 - Generalized abdominal pain Ventral hernia Qualifiers: Obstruction and gangrene presence: without obstruction or gangrene Qualified Code(s): K43.9 - Ventral hernia without obstruction or gangrene Condition: Stable Prescriptions: New hydrocodone-acetaminophen 5-325 mg tablet 1 tab PO Q6H PRN (Reason: pain) Qty: 14 0RF ondansetron 4 mg tablet,disintegrating 4 mg PO Q6H PRN (Reason: nausea and vomiting) Qty: 14 0RF No Action lidocaine-epinephrine 2 %-1:100,000 solution 12 ml Infiltration ONCE Qty: 20 0RF trazodone 50 mg tablet 100 mg PO .HS Qty: 60 1RF duloxetine 30 mg capsule,delayed release(DR/EC) 30 mg PO DAILY Qty: 90 0RF levothyroxine 25 mcg capsule 25 mcg PO DAILY Qty: 30 1RF Rx Instructions: NO MORE WITHOUT AN APPT AND LABS Discharge Orders: Discharge ED (Routine); Ordered 03/20/22 Ordered By: Marcia Suh Referrals: Denny Walton MD [Physician] - 1-3 days Ebony Ross DO [Primary Care Provider] - Discharge Diet: Advance as tolerated Discharge Activity: Resume usual activity Patient Instructions: Abdominal Pain (ED), Opioid Safety Coding Level of Care Code ED 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
[2022-03-20 17:14] LABS: Add Urine Microscopic? YES; Bilirubin Urine Neg (Negative); Blood Urine Trace (Negative); Glucose Urine UA Norm (Normal); Ketones Urine Negative (Negative); Leukocyte Esterase Urine Negative (Negative); Nitrate Urine Negative (Negative); Protein Urine Neg (Negative); Urine Appearance Clear (CLEAR); Urine Color Yellow (Yellow); Urobilinogen Urine Norm (Negative); pH Urine 5 (5-7)
[2022-03-20 17:15] LABS: Add Urine Culture? No; Bacteria Urine 2+ /hpf; RBC Urine RARE /hpf (0-2)
[2022-03-20 17:41] VITALS: RESP 18
[2022-03-20] MEDS: morphine 4 mg/mL SDV 1 mL IVP (17:41)
[2022-03-20] MEDS: ondansetron 2 mg/ML SDV 2 mL 4 MG IVP (17:41)
[2022-03-20 18:16] LABS: Alanine Aminotransferase 49 U/L (0-33); Albumin Level 4.3 g/dL (3.5-5.2); Alkaline Phosphatase 73 IU/L (35-105); Blood Urea Nitrogen 11 mg/dL (6-20); Calcium 8.6 mg/dL (8.5-10.5); Carbon Dioxide 26 mmol/L (22-29); Chloride 104 mmol/L (98-107); Globulin 2.9 g/dL (1.3-4.6); Glucose 101 mg/dL (65-115); Lipase 23 U/L (13-60); Osmolality Calculated 292 mOsm/kg (285-295); Sodium 141 mmol/L (136-145); Total Bilirubin 0.5 mg/dL (0.15-1.2); Total Protein 7.2 g/dL (6.6-8.7)
[2022-03-20 18:22] VITALS: BP 143/88; PULSE 92; RESP 17; O2SAT 96
[2022-03-20 18:28] LABS: Anion Gap 14.9 (5-19); Potassium 3.9 mmol/L (3.5-5.1)
[2022-03-20 18:29] LABS: Aspartate Amino Transferase 43 U/L (0-32)
--- NOTE | 2022-03-23 11:13 | DCPLANNER ---
Addendum entered by Carolann Christianson 03/25/22 14:01: Patient had a follow up appointment scheduled for 03.24.[address] Walton at [facility] - patient did attend appointment. Original Note: customer sales service manager had message to schedule a follow up appointment for patient with general surgery. customer sales service manager sent patients information to the front office staff at general surgery. Patients information will be printed and reviewed. Clinic will call patient with appointment information.
== END 2022-03-20 18:23 | disposition home or self-care (01) ==
PROVIDERS: Emergency Provider Emergency Medicine; PCP Family Medicine
DX: K43.9 Ventral hernia without obstruction or gangrene (principal); E11.9 Type 2 diabetes mellitus without complications; E78.5 Hyperlipidemia, unspecified; E03.9 Hypothyroidism, unspecified
CPT/HCPCS: 74176; 80053; 81001; 83690; 85025; 96374; 96375; 99284; J2270; J2405

== ENCOUNTER → 2022-03-24 09:36 | Outpatient (BNVA) | payer MEDICAID, SELFPAY | PROVIDERS: PCP Family Medicine; Visit Provider Surgery | DX: K43.9 Ventral hernia without obstruction or gangrene (principal); R10.84 Generalized abdominal pain | CPT/HCPCS: 99203 ==

== ENCOUNTER 2022-06-25 09:25 | Day surgery (SDC) | payer MEDICAID, SELFPAY ==
[2022-06-23 08:53] VITALS: BMI 35.5
--- NOTE | 2022-06-25 09:45 | P.ANESASSM_ITS ---
Pre-Anesthetic Assessment Height/Weight: Height 1.52 m Weight 82.554 kg Preop Diagnosis: Left-sided abdominal pain Operation Date: 06/25/22 11:00 Proposed Procedures p Colonoscopy 54405/R10.9(Not Applicable) - Denny Walton MD Familial anesthetic complications: None Was Beta Rita taken within 24 hours: N/A Was Clonidine taken within 24 hours: N/A Last intake: 06/24/22 Social No alcohol and No tobacco Exam alert, oriented x 3, clear to auscultation bilaterally and regular rate & rhythm Airway Submandibular: within normal limits Cervical ROM: within normal limits Mallampati: Class I Dentition: false History/ROS No significant complaints Pulmonary None reported CV/HEM None reported None reported Post menopausal bleeding Hepatic None reported GI None reported Metabolic Diabetes Mellitus, Hyperlipidemia and Thyroid Disease Obesity Diverticulosis Musc/sk None reported Neuropsych Anxiety, Depression and Headache Anesthetic Plan ASA status: 2 (57 year old female with hx of diabetes, obesity, depression, hypothyroidism) Anesthesia: Anesthesia Evaluation, General and MAC Other: I discussed with the patient risks, goals, and benefits of MAC and general anesthesia. We discussed spectrum of MAC anesthesia including conversion to general as well as possibility of recall of intraoperative stimuli including discomfort/pain. Patient agrees to proceed with MAC. Risk of > 500 ml blood loss (7ml/kg in children): No Medications/Allergies Allergies Allergy/AdvReac Type Severity Reaction Status Date / Time cephalexin [From Keflex] Allergy Intermediate ALGY-Rash Verified 06/25/22 09:46 tetanus and diphtheria Allergy Intermediate ALGY-Redness Verified 06/25/22 09:46 toxoids of Skin [facility] Anesthesia Medical History Diverticulosis large intestine w/o perforation or abscess w/o bleeding Had diverticulitis in 2018 Drug reaction To zocor Enrolled in chronic care management Hyperlipidemia Hypothyroidism Type 2 diabetes mellitus Previously treated with metformin - now resolved. Most recent A1C in 01/17 was 5.5 Surgical History History of section, low transverse 2002- Performed by Dr Pettit at [facility] in [place], [place]. 2004-Performed by Dr Pettit at [facility] in [facility] [place]. 2008-Performed by Dr Pettit at [facility] in [place], [place] History of cholecystectomy (04/2004) Performed at [facility] in [place], [place] History of hemorrhoidectomy (~1997) Performed at [facility] in [place], [place] Family History Mother Stroke Heart disease Hypercholesteremia Colon cancer Hypertension Sister Ovarian cancer Family/Other Breast cancer maternal aunt Social History Smoking and tobacco status: never smoked Second hand smoke exposure: Yes (Sometimes) Alcohol intake: never History of recent travel: No Female Reproductive History Date of last menstrual period: 12/02/18 Data Anesthesia Cardiac Studies: No Data to Display
[2022-06-25 09:48] VITALS: BP 147/72; PULSE 68; RESP 16; TEMP 37.1; O2SAT 98
[2022-06-25] MEDS: sodium chloride 0.9% 1,000 ML 30 ML IV (10:13)
--- NOTE | 2022-06-25 11:00 | P.HP_ITS ---
Same Day Surgery H&P Indication for Procedure/HPI DATE OF PROCEDURE: June 25, 2022 CHIEF COMPLAINT/INDICATIONFOR SURGICAL PROCEDURE: History of colon polyp PREOP DIAGNOSIS: Left-sided abdominal pain PLANNED PROCEDURE: Operation Date: 06/25/22 11:00 Proposed Procedures p Colonoscopy 86548/R10.9(Not Applicable) - Denny Walton MD 03/24/2022 This is a pleasant 56 years old female patient with history of obesity and a current weight of 197 pounds and a BMI of 38.5.? Patient reports pain towards the left side of her abdomen towards the left flank.? Has been going on since last January and being tender to touch.? Patient recently went to the emergency department with the same complaints and describes the pain as being sharp and seems to be worse with straining or coughing.? Also describes it is getting worse when she attempts to have a bowel movement and gets better while laying down.? Patient undergone a CT scan of the abdomen pelvis that did show; Liver: There is diffuse low-attenuation of the liver relative to the spleen consistent with fatty infiltration. There is no focal liver abnormality. Gallbladder and bile ducts: The gallbladder is absent. There is no intrahepatic or extrahepatic bile duct dilation. Pancreas: The pancreas is unremarkable. Spleen: The spleen is unremarkable. Adrenal glands: The adrenal glands are unremarkable. Kidneys and ureters: The kidneys are unremarkable. No hydronephrosis or stones. No ureteral dilation. Stomach and bowel: The stomach is unremarkable. The small bowel is nondilated. There is mild sigmoid colonic diverticulosis without evidence of diverticulitis. Appendix: The midportion of the appendix is at the upper limit of normal in size measuring 8 mm diameter. There is no periappendiceal edema or other evidence of inflammation. No appendicolith. Findings are similar to those seen on 02/07/2018. Appendicitis is not suspected. Intraperitoneal space: There is no free air or significant intraperitoneal free fluid. Vasculature: There is mild aortic atherosclerotic disease. Lymph nodes: There is no lymphadenopathy in the retroperitoneum, mesentery, pelvis or inguinal regions. Urinary bladder: The urinary bladder is decompressed, preventing meaningful evaluation of wall thickness. Reproductive: The uterus is unremarkable. There is no adnexal mass or large cyst. Bones/joints: There is mild degenerative disease in the lumbar spine. The pelvis and hips are unremarkable. Soft tissues: Multifocal fat containing periumbilical ventral hernia. Patient reports that she had a previous colonoscopy back in 2016 and polyps were found. 06/25/2022 Patient comes today for diagnostic colonoscopy Medications/Allergies* Allergies/Adverse Reactions Allergy/AdvReac Type Severity Reaction Status Date / Time cephalexin [From Keflex] Allergy Intermediate ALGY-Rash Verified 06/25/22 11:01 tetanus and diphtheria Allergy Intermediate ALGY-Redness Verified 06/25/22 11:01 toxoids of Skin Current Medications: Generic Name Dose Route Start Last Admin Trade Name Freq PRN Reason Stop Dose Admin Sodium Chloride 1,000 mls @ 30 mls/hr 06/25/22 09:30 06/25/22 10:13 Sodium Chloride 0.9% IV 30 mls/hr .Q24H NOA Administration Pertinent History/Comorbid Conditions* Medical History (Updated 03/28/22 @ 00:00 by ) Diverticulosis large intestine w/o perforation or abscess w/o bleeding Had diverticulitis in 2018 Drug reaction To zocor Enrolled in chronic care management Hyperlipidemia Hypothyroidism Type 2 diabetes mellitus Previously treated with metformin - now resolved. Most recent A1C in 01/17 was 5.5 Surgical History (Updated 01/05/20 @ 15:56 by Dagoberto Pettit MD) History of section, low transverse 2002- Performed by Dr Pettit at [facility] in [place], [place]. 2004-Performed by Dr Pettit at [facility] in [place], [place]. 2008-Performed by Dr Pettit at [facility] in [place], [place] History of cholecystectomy (04/2004) Performed at [facility] in [place], [place] History of hemorrhoidectomy (~1997) Performed at [facility] in [place], [place] Family History (Updated 01/05/20 @ 15:58 by Dagoberto Pettit MD) Colon cancer Mother Ovarian cancer Sister Heart disease Mother Hypercholesteremia Mother Breast cancer Family/Other maternal aunt Hypertension Mother Stroke Mother Social History Smoking and tobacco status: never smoked Second hand smoke exposure: Yes (Sometimes) Alcohol intake: never History of recent travel: No Pertinent Exam Findings alert, oriented x 3, regular rate & rhythm and procedure specific exam findings (Abdominal exam nontender nondistended soft) Recommendations Surgery/Procedure today (Diagnostic colonoscopy) Coding Level of Care Code Acute Electric Fork Operator for Darren Hou
[2022-06-25 11:20] VITALS: BP 102/73; PULSE 71; RESP 16; TEMP 36.3; O2SAT 94
[2022-06-25 11:41] VITALS: BP 120/83; PULSE 70; RESP 18; O2SAT 96
--- NOTE | 2022-06-25 11:51 | PC.NURSE ---
pt given phone number to [facility] per her request. states that her does not like [place] and he won't bring her back for follow up visit.
--- NOTE | 2022-06-25 12:10 | ANE.PACU2 ---
Inpatient post-anesthesia follow up: Airway intact: Yes Vital signs: Temperature 97.4 F Pulse Rate 70 Respiratory Rate 18 Blood Pressure 120/83 Pulse Oximetry 96 Oxygen Delivery Me thod Room Air Oxygen Flow Rate Fraction of Inspir ed Oxygen Hydration adequate: Yes Nausea and vomiting: No Pain level: 1 Mental status: Baseline
== END 2022-06-25 11:58 | disposition home or self-care (01) ==
PROVIDERS: PCP Family Medicine; Visit Provider Surgery
PROC: 0DJD8ZZ Inspection of Lower Intestinal Tract, Via Natural or Artificial Opening Endoscopic (ICD-10-PCS; CPT 45378; principal; 2022-06-25 11:00)
DX: R10.32 Left lower quadrant pain (principal); K57.30 Diverticulosis of large intestine without perforation or abscess without bleeding; I10 Essential (primary) hypertension; E03.9 Hypothyroidism, unspecified; E66.9 Obesity, unspecified; Z68.35 Body mass index [BMI] 35.0-35.9, adult; Z88.1 Allergy status to other antibiotic agents
CPT/HCPCS: 45378; J2704; J7030